=== PATIENT | female | born 1950 | race Caucasian/White ===

== ENCOUNTER 2017-11-05 13:47 | Outpatient (CLI) | payer MEDICARE, BC | END 2017-11-05 13:48 | disposition home or self-care (01) | LOC: BICMAMMO 13:47 | PROVIDERS: ATTEND Family Medicine | DX: Z12.31 Encounter for screening mammogram for malignant neoplasm of breast (principal); M81.0 Age-related osteoporosis without current pathological fracture; M85.859 Other specified disorders of bone density and structure, unspecified thigh; Z80.3 Family history of malignant neoplasm of breast | CPT/HCPCS: 77063; 77067; 77080 ==

== ENCOUNTER 2017-12-02 09:06 | Day surgery (SDC) | payer MEDICARE, BC ==
[2017-12-01 09:57] VITALS: BMI 43.9
[2017-12-02] MEDS ORDERED: PROPOFOL 200 MG/20 ML VIAL ONE (12:32)
[2017-12-02] MEDS ORDERED: Lidocaine 1% PF 5 ML VIAL ONE (12:32)
--- NOTE | 2017-12-02 12:49 | OP ---
DATE OF PROCEDURE: 12/02/2017 PROCEDURE: Colonoscopy with polypectomy and control of hemorrhage. INDICATION FOR PROCEDURE: Screening for malignant neoplasms of the colon ( average risk with no family history of colon polyps or cancer). DESCRIPTION OF PROCEDURE: After the risks and benefits of the procedure were explained to the patient including risks of bleeding, infection, perforation, reaction to anesthesia and/or pain, informed consent was obtained. The patient was then taken to the endoscopy suite where deep sedation was administered via propofol and anesthesia support. Once adequate sedation was achieved, the standard colonoscope was introduced into the rectum and advanced to the cecum with some difficulty due to tortuosity of the colon that required manual abdominal pressure to facilitate passage of the scope. The quality of the prep was good. The patient tolerated the procedure well with no immediate perioperative complications. DIGITAL RECTAL EXAMINATION: Normal. COLON FINDINGS: Normal appearing mucosa was seen at the appendiceal orifice, ileocecal valve within the cecum itself. A 4-5 mm semi-pedunculated polyp was seen in the mid ascending colon and completely removed with hot snare polypectomy. The polyp was retrieved and placed in specimen jar for evaluation. However, after the polypectomy, the site continued to ooze blood that did not stop spontaneously, so Hemoclips x2 were placed to approximate the mucosal defect with good hemostasis achieved. Normal appearing mucosa was then seen in the transverse colon. Multiple/numerous small to large diverticulae were seen within the distal transverse, descending and sigmoid colons. Otherwise, there were no other abnormalities with normal mucosa seen in the rectum. Small internal hemorrhoids were seen on rectal retroflexion. IMPRESSION: 1. A 4-5 mm ascending colon polyp, completely removed with hot snare polypectomy. Minimal oozing of blood was noted afterwards with good hemostasis with Hemoclip x2. 2. Severe left-sided diverticulosis. 3. Small internal hemorrhoids. RECOMMENDATIONS: 1. We will follow up on the pathology results with repeat colonoscopy depending on the pathology read. 2. Would recommend a higher fiber diet given the presence of diverticulosis and internal hemorrhoids. 3. Would have the patient follow up in the GI Clinic as needed. MACKENZIE
== END 2017-12-02 12:22 | disposition home or self-care (01) ==
LOC: SDC 09:06
PROVIDERS: ATTEND Internal Medicine
PROC: 0DBK8ZX Excision of Ascending Colon, Via Natural or Artificial Opening Endoscopic, Diagnostic (ICD-10-PCS; principal; 2017-12-02)
DX: Z12.11 Encounter for screening for malignant neoplasm of colon (principal); K51.418 Inflammatory polyps of colon with other complication; K57.30 Diverticulosis of large intestine without perforation or abscess without bleeding; K64.8 Other hemorrhoids; K21.9 Gastro-esophageal reflux disease without esophagitis; E78.00 Pure hypercholesterolemia, unspecified; I10 Essential (primary) hypertension; J45.909 Unspecified asthma, uncomplicated; Z79.1 Long term (current) use of non-steroidal anti-inflammatories (NSAID); Z79.899 Other long term (current) drug therapy
CPT/HCPCS: 88305; J2001; J2704

== ENCOUNTER 2018-12-22 10:59 | Outpatient (CLI) | payer MEDICARE, BC ==
--- NOTE | 2018-12-22 14:07 | MMO ---
Bilateral MAMMO Bilat Screen [facility]. CLINICAL HISTORY: Patient is 68 years old and is seen for screening. The patient has the following family history of breast cancer: 2 sisters. The patient has no personal history of cancer. VIEWS: The views performed were: bilateral mediolateral oblique with tomosynthesis; bilateral craniocaudal with tomosynthesis; left mediolateral oblique; and right craniocaudal. FILMS COMPARED: The present examination has been compared to a prior imaging study performed at [facility] on 11/05/2017. MAMMOGRAM FINDINGS: There are scattered fibroglandular densities. Finding 1: There are stable benign appearing calcifications seen in both breasts. Finding 2: There are multiple stable nodules of varying size seen in both breasts. There are no suspicious masses, suspicious calcifications, or new areas of architectural distortion. IMPRESSION: THERE IS NO MAMMOGRAPHIC EVIDENCE OF MALIGNANCY. A ROUTINE FOLLOW-UP MAMMOGRAM IN 1 YEAR IS RECOMMENDED. THE RESULTS OF THIS EXAM WERE SENT TO THE PATIENT. ACR BI-RADS Category 2 - Benign finding MAMMOGRAPHY NOTE: 1. A negative mammogram report should not delay a biopsy if a dominant of clinically suspicious mass is present. 2. Approximately 10% to 15% of breast cancers are not detected by mammography. 3. Adenosis and dense breasts may obscure an underlying neoplasm. Reported by: AMPARO REYES MD Electonically Signed: [id number]
== END 2018-12-22 11:00 | disposition home or self-care (01) ==
LOC: BICMAMMO 10:59
PROVIDERS: ATTEND Family Medicine
DX: Z12.31 Encounter for screening mammogram for malignant neoplasm of breast (principal); Z80.3 Family history of malignant neoplasm of breast
CPT/HCPCS: 77063; 77067

== ENCOUNTER 2020-04-01 11:18 | Outpatient (CLI) | payer MEDICARE, BC ==
--- NOTE | 2020-04-01 12:20 | MMO ---
Bilateral MAMMO Bilat Screen [facility]. CLINICAL HISTORY: Patient is 70 years old and is seen for screening. The patient has the following family history of breast cancer: 2 sisters. The patient has no personal history of cancer. VIEWS: The views performed were: bilateral craniocaudal with tomosynthesis and bilateral mediolateral oblique with tomosynthesis. FILMS COMPARED: The present examination has been compared to prior imaging studies performed at [facility] on 11/05/2017 and 12/22/2018. This study has been interpreted with the assistance of computer-aided detection. MAMMOGRAM FINDINGS: There are scattered fibroglandular densities. There are benign appearing calcifications seen in both breasts. Nodularity is stable. There are no suspicious masses, suspicious calcifications, or new areas of architectural distortion. IMPRESSION: THERE IS NO MAMMOGRAPHIC EVIDENCE OF MALIGNANCY. A ROUTINE FOLLOW-UP MAMMOGRAM IN 1 YEAR IS RECOMMENDED. THE RESULTS OF THIS EXAM WERE SENT TO THE PATIENT. ACR BI-RADS Category 2 - Benign finding MAMMOGRAPHY NOTE: 1. A negative mammogram report should not delay a biopsy if a dominant of clinically suspicious mass is present. 2. Approximately 10% to 15% of breast cancers are not detected by mammography. 3. Adenosis and dense breasts may obscure an underlying neoplasm. Reported by: SYLVIA DOWELL MD Electonically Signed: [id number]
== END 2020-04-01 11:19 | disposition home or self-care (01) ==
LOC: BICMAMMO 11:18
PROVIDERS: ATTEND Family Medicine
DX: Z12.31 Encounter for screening mammogram for malignant neoplasm of breast (principal); Z80.3 Family history of malignant neoplasm of breast
CPT/HCPCS: 77063; 77067

== ENCOUNTER 2021-06-11 11:14 | Outpatient (CLI) | payer MEDICARE, BC | END 2021-06-11 11:15 | disposition home or self-care (01) | LOC: BICMAMMO 11:14 | PROVIDERS: ATTEND Family Medicine | DX: Z12.31 Encounter for screening mammogram for malignant neoplasm of breast (principal); Z80.3 Family history of malignant neoplasm of breast; N63.11 Unspecified lump in the right breast, upper outer quadrant | CPT/HCPCS: 77063; 77067 ==

== ENCOUNTER 2021-06-16 10:33 | Outpatient (CLI) | payer MEDICARE, BC | END 2021-06-16 10:34 | disposition home or self-care (01) | LOC: BICULT 10:33 | PROVIDERS: ATTEND Family Medicine | DX: N63.10 Unspecified lump in the right breast, unspecified quadrant (principal) ==

== ENCOUNTER → 2021-06-24 | Day surgery (SDC) | payer MEDICARE, BC | LOC: BICULT 12:20 | PROVIDERS: ATTEND Family Medicine | PROC: 0H9T3ZX Drainage of Right Breast, Percutaneous Approach, Diagnostic (ICD-10-PCS; principal; 2021-06-24) | DX: D24.1 Benign neoplasm of right breast (principal); Z88.1 Allergy status to other antibiotic agents | CPT/HCPCS: 19083; 88305; 88341; 88342 ==

== ENCOUNTER 2021-08-08 12:49 | Outpatient (CLI) | payer MEDICARE, BC ==
[2021-08-08 13:53] LABS: #Eosinphils 0.2 10x3/uL (0.0-0.5); #Monocytes 0.4 10x3/uL (0.0-1.1); #Neutrophils 4.4 10x3/uL (1.5-8.4); %Basophils 0.5 % (0.0-2.0); %Eosinophils 2.6 % (0.0-6.0); %Lymphocytes 22.5 % (18.0-47.0); %Monocytes 6.4 % (0.0-10.0); %Neutrophils 67.8 % (40.0-75.0); Hemoglobin 15.2 g/dL (12.0-15.5); Mean Corpuscular Hemoglobin 31.2 pg (27.0-33.0); Mean Corpuscular Volume 94.7 fl (81.6-98.3); Mean Platelet Volume 9.9 fl (7.4-10.4); Platelet Count 206 10x3/uL (150-450); RBC Distribution Width 13.2 % (11.5-14.5); Red Blood Cell (RBC) Count 4.87 10x6/uL (3.90-5.03); White Blood Cell (WBC) Count 6.5 10x3/uL (3.5-10.5)
[2021-08-08 14:14] LABS: Anion Gap 16 mmol/L (10-20); BUN (Urea Nitrogen) 9 mg/dL (9.8-20.1); Calc. Creatinine Clearance 0 mL/min (70-130); Calcium 9.7 mg/dL (7.8-10.44); Carbon Dioxide 29 mmol/L (23-31); Chloride 100 mmol/L (98-107); Glucose 138 mg/dL (80-115); Potassium 4.1 mmol/L (3.5-5.1); Sodium 141 mmol/L (136-145)
[2021-08-08 22:15] LABS: SARS-CoV-2 PCR by NAA Not Detected (NotDetected)
== END 2021-08-08 12:50 | disposition home or self-care (01) ==
LOC: LABBT 12:49
PROVIDERS: ATTEND Surgery
DX: Z01.818 Encounter for other preprocedural examination (principal); N60.91 Unspecified benign mammary dysplasia of right breast; Z20.822 Contact with and (suspected) exposure to COVID-19
CPT/HCPCS: 80048; 85025; U0003; U0005

== ENCOUNTER 2022-08-10 13:45 | Outpatient (CLI) | payer MEDICARE, BC | END 2022-08-10 13:46 | disposition home or self-care (01) | LOC: BICMAMMO 13:45 | PROVIDERS: ATTEND Internal Medicine Hematology & Oncology | DX: Z08 Encounter for follow-up examination after completed treatment for malignant neoplasm (principal); Z85.3 Personal history of malignant neoplasm of breast | CPT/HCPCS: 77066; G0279 ==

== ENCOUNTER 2022-10-18 10:52 | Emergency (ER) | payer MEDICARE, BC ==
[2022-10-18 11:24] LABS: #Eosinphils 0.2 thou/uL (0.0-0.7); #Monocytes 0.5 thou/uL (0.11-0.59); #Neutrophils 5.5 thou/uL (1.40-6.50); %Basophils 0.5 % (0.0-1.0); %Eosinophils 2.3 % (0.0-10.0); %Lymphocytes 24.4 % (21.0-51.0); %Neutrophils 66.7 % (42.0-75.0); Hemoglobin 12.1 g/dL (12.0-16.0); Mean Corpuscular HGB CONC 32.4 g/dL (32.0-36.0); Mean Corpuscular Hemoglobin 31.8 pg (27.0-31.0); Mean Corpuscular Volume 97.9 fl (78.0-98.0); Mean Platelet Volume 10.4 fL (7.4-10.4); Platelet Count 212 10x3/uL (130-400); RBC Distribution Width 12.9 % (11.5-14.5); Red Blood Cell (RBC) Count 3.81 mill/uL (4.20-5.40); White Blood Cell (WBC) Count 8.3 10x3/uL (4.8-10.8)
[2022-10-18 11:46] LABS: ALT (SGPT) 8 U/L (8-55); AST (SGOT) 12 U/L (5-34); Albumin 3.5 g/dL (3.4-4.8); Alkaline Phosphatase 106 U/L (40-110); Anion Gap 11 mmol/L (10-20); BUN (Urea Nitrogen) 13 mg/dL (9.8-20.1); Bilirubin, Total 0.3 mg/dL (0.2-1.2); Calc. Creatinine Clearance 0 mL/min (70-130); Calcium 9.3 mg/dL (7.8-10.44); Carbon Dioxide 28 mmol/L (23-31); Chloride 102 mmol/L (98-107); Estimated GFR 91; Globulin 2.6 g/dL (2.4-3.5); Glucose 106 mg/dL (83-110); Potassium 4.2 mmol/L (3.5-5.1); Protein, Total 6.1 g/dL (5.8-8.1); Sodium 137 mmol/L (136-145)
== END 2022-10-18 12:40 | disposition home or self-care (01) ==
LOC: ERS 10:52
DX: K92.1 Melena (principal); K21.9 Gastro-esophageal reflux disease without esophagitis; E78.00 Pure hypercholesterolemia, unspecified; I10 Essential (primary) hypertension; J44.9 Chronic obstructive pulmonary disease, unspecified; Z79.01 Long term (current) use of anticoagulants; Z79.899 Other long term (current) drug therapy
CPT/HCPCS: 36415; 80053; 85025; 86850; 86900; 86901; 99283

== ENCOUNTER 2022-12-11 06:03 | Day surgery (SDC) | payer MEDICARE, BC ==
[2022-12-10 08:52] VITALS: BMI 43.5
[2022-12-11] MEDS ORDERED: PROPOFOL 200 MG/20 ML VIAL ONE (07:41)
== END 2022-12-11 09:10 | disposition home or self-care (01) ==
LOC: SDC 06:03
PROVIDERS: ATTEND Internal Medicine
PROC: 0DJD8ZZ Inspection of Lower Intestinal Tract, Via Natural or Artificial Opening Endoscopic (ICD-10-PCS; principal; 2022-12-11)
DX: K92.1 Melena (principal); K57.30 Diverticulosis of large intestine without perforation or abscess without bleeding; K64.8 Other hemorrhoids; K21.9 Gastro-esophageal reflux disease without esophagitis; M19.90 Unspecified osteoarthritis, unspecified site; I48.91 Unspecified atrial fibrillation; J44.9 Chronic obstructive pulmonary disease, unspecified; I10 Essential (primary) hypertension; E78.00 Pure hypercholesterolemia, unspecified; Z79.01 Long term (current) use of anticoagulants; Z88.1 Allergy status to other antibiotic agents; Z86.010 Personal history of colon polyps; Z79.899 Other long term (current) drug therapy
CPT/HCPCS: J2704

== ENCOUNTER 2023-05-31 13:06 | Outpatient (CLI) | payer MEDICARE | END 2023-05-31 13:07 | disposition home or self-care (01) | LOC: BICMAMMO 13:06 | PROVIDERS: ATTEND Internal Medicine Hematology & Oncology | DX: Z13.820 Encounter for screening for osteoporosis (principal); C50.111 Malignant neoplasm of central portion of right female breast; M85.89 Other specified disorders of bone density and structure, multiple sites | CPT/HCPCS: 77080 ==